=== PATIENT | female | born 1995 | race Hispanic/Latino ===

== ENCOUNTER 2020-10-04 14:13 | Emergency (ER) | payer SELFPAY ==
[2020-10-04 14:40] LABS: APPEARANCE,URINE Clear (CLEAR); BILIRUBIN,URINE Negative (NEGATIVE); COLOR,URINE Yellow (YELLOW); GLUCOSE, URINE (UA) Negative (NEGATIVE); KETONES,URINE Trace mg/dL (NEGATIVE); LEUKOCYTE ESTERASE ,URINE Trace (NEGATIVE); NITRATE,URINE Negative (NEGATIVE); OCCULT BLOOD,URINE Small (NEGATIVE); PH,URINE 5.5 (5.0-8.0); PROTEIN,URINE POS 1+ mg/dL (NEGATIVE)
[2020-10-04 14:43] LABS: HCG,QUAL RESULT NEGATIVE (NEGATIVE)
[2020-10-04] MEDS ORDERED: KETOROLAC TROMETHAMINE 60 MG/2 ML VIAL ONE (14:47)
[2020-10-04] MEDS ORDERED: CYCLOBENZAPRINE HCL 10 MG TABLET ONE (14:48)
[2020-10-04 15:01] LABS: BACTERIA,URINE Few /HPF (None Seen); MUCUS,URINE Moderate LPF (None Seen); SQUAMOUS EPITHELIAL CELL,UR Moderate /HPF (0-2)
[2020-10-04] MEDS ORDERED: CEFTRIAXONE SODIUM 1 GM ONE (15:14)
[2020-10-04] MEDS ORDERED: PHENAZOPYRIDINE HCL 200 MG TABLET ONE (15:14)
[2020-10-04] MEDS ORDERED: LIDOCAINE HCL-MPF 1% 2ML VIAL ONE (15:15)
== END 2020-10-04 15:27 | disposition home or self-care (01) ==
LOC: EDH 14:13
DX: N30.00 Acute cystitis without hematuria (principal); M54.42 Lumbago with sciatica, left side
CPT/HCPCS: 72100; 81001; 81025; 87088; 96372 ×2; 99284; J0696; J1885; J3490